=== PATIENT | male | born 1955 | race Caucasian/White ===

== ENCOUNTER 2019-10-04 16:45 | Outpatient (CLI) | payer BC ==
--- NOTE | 2019-10-04 17:45 | Ultrasound Report ---
PROCEDURE: Duplex Ext Veins Bilateral INDICATIONS: Lower extremity edema worse on the left side TECHNIQUE: Real-time imaging, as well as color and pulse Doppler interrogation, were performed of the deep veins of both legs from the inguinal ligament to the popliteal fossa. COMPARISON: None FINDINGS: The deep veins are normally compressible, and free of intraluminal thrombus. Color and pu lse Doppler demonstrate normal phasic intravascular flow. There is normal augmentation response to d istal compression maneuver. IMPRESSION: No evidence of DVT in visualized bilateral lower extremity veins. Reviewed by: Obi Schmidt MD on 10/04/2019 5:43 PM PDT Approved by: Obi Schmidt MD on 10/04/2019 5:43 PM PDT Station ID: [id number]
== END 2019-10-04 16:46 | disposition home or self-care (01) ==
LOC: DI 16:45
PROVIDERS: ATTEND Internal Medicine
DX: R60.0 Localized edema (principal); Z96.642 Presence of left artificial hip joint
CPT/HCPCS: 93970

== ENCOUNTER 2022-03-07 14:15 | Outpatient (CLI) | payer MEDICARE, OTHER | END 2022-03-07 14:16 | disposition critical access hospital (66) | LOC: EMS 14:15 | DX: R55 Syncope and collapse (principal); R56.9 Unspecified convulsions; R41.0 Disorientation, unspecified; S00.81XA Abrasion of other part of head, initial encounter; S00.31XA Abrasion of nose, initial encounter; S60.512A Abrasion of left hand, initial encounter; S60.511A Abrasion of right hand, initial encounter; W18.39XA Other fall on same level, initial encounter; Y92.89 Other specified places as the place of occurrence of the external cause | CPT/HCPCS: A0425; A0429 ==

== ENCOUNTER 2022-03-07 14:27 | Emergency (ER) | payer MEDICARE, OTHER ==
--- NOTE | 2022-03-07 14:34 | ED Physician Documentation ---
PD HPI SEIZURE - Stated complaint Stated Complaint: SYNCOPE - History obtained from History obtained from: Patient, EMS - Additional information Additional information: 66-year-old gentleman with history of aortic valve replacement, bovine, chronic GI issues and hypertension had what sounds ago first-time seizure today. He is a senior management consultant and he was on the deck at his office, his was inside and heard a thud and found him face down with tonic-clonic seizure activity lasting minutes with a prolonged postictal episode. He is currently still confused but conversant, and improving rapidly. He has never had a seizure before. He drinks alcohol nightly, but says not to excess and no recent changes in alcohol consumption. Review of Systems Ten Systems: 10 systems reviewed and negative Constitutional: reports: Reviewed and negative Ears: reports: Reviewed and negative Throat: reports: Reviewed and negative Cardiac: reports: Reviewed and negative PD PAST MEDICAL HISTORY - Past Medical History Cardiovascular: Hypertension, Valve disorder - Past Surgical History Past Surgical History: Yes Cardiovascular: Valve replacement - Present Medications Home Medications: Ambulatory Orders Medication Instructions Recorded Confirmed Aspirin/Calcium Carbonate/Mag 1 tab DAILY 10/23/14 10/23/14 [Aspirin Buffered 325 mg Tab] HYDROcod/ACETAM 5/325 [Vicodin 1 tab QPM 10/23/14 10/23/14 5/325] Metoprolol Succinate [Toprol Xl] 25 mg PO BID 10/23/14 10/23/14 predniSONE [Deltasone] 40 mg PO DAILY 5 Days tablet 10/23/14 - Allergies Allergies/Adverse Reactions: Allergies Allergy/AdvReac Type Severity Reaction Status Date / Time No Known Drug Allergies Allergy Verified 10/23/14 18:29 - Social History Does the pt smoke?: No Smoking Status: Never smoker Does the pt drink ETOH?: Yes Does the pt have substance abuse?: No - Immunizations Immunizations: TDAP >10years/unknown PD ED PE NORMAL - Vitals Vital signs reviewed: Yes - General General: No acute distress, Other (Alert and oriented x2, does not recollect events from today.) - HEENT HEENT: PERRL, EOMI, Other (He has abrasions on the forehead and on the bridge of the nose with a abrasion on the top right of the tongue without laceration. No loose teeth.) - Neck Neck: Supple, no meningeal sign, No bony TTP, No bruit - Cardiac Cardiac: RRR, No murmur - Respiratory Respiratory: No respiratory distress, Clear bilaterally - Abdomen Abdomen: Normal bowel sounds, Soft, Non tender - Back Back: No CVA TTP, No spinal TTP - Derm Derm: Normal color, Warm and dry - Extremities Extremities: Other (Abrasions on the dorsum of both hands without tenderness or limited range of motion.) - Neuro Neuro: jockey agent 2-12 intact Eye Opening: Spontaneous Motor: Obeys Commands Verbal: Confused GCS Score: 14 Results - Vitals Vitals: Vital Signs - 24 hr 03/07/22 03/07/22 14:58 17:08 Temperature 36.8 C Heart Rate 96 71 Respiratory 18 13 Rate Blood Pressure 141/85 H 151/99 H O2 Saturation 94 99 Oxygen O2 Source Room air - EKG (time done) 1436 Rate: Rate (enter#) (93) Rhythm: NSR (w pvcs), LAE Intervals: Other (IVCD mild 130msec). No: Prolonged QT Ischemia: Q waves (inferior). No: ST elevation c/w ischemia, ST depression - Labs Labs: Laboratory Tests 03/07/22 03/07/22 03/07/22 14:36 14:36 14:36 WBC 11.2 H RBC 4.97 Hgb 16.5 Hct 49.7 MCV 100.0 H MCH 33.2 H MCHC 33.2 RDW 13.5 Plt Count 264 MPV 9.4 Neut # (Auto) 6.9 H Lymph # (Auto) 2.6 Whitfield # (Auto) 1.5 H Eos # (Auto) 0.1 Baso # (Auto) 0.1 Absolute Nucleated RBC 0.00 Nucleated RBC % 0.0 Sodium 131 L Potassium 3.8 Chloride 94 L Carbon Dioxide 17 L Anion Gap 20.0 H BUN 9 Creatinine 0.8 Estimated GFR (MDRD) 97 Glucose 137 H Calcium 9.0 Magnesium 2.1 Total Bilirubin 1.4 H AST 34 ALT 40 Alkaline Phosphatase 47 Total Protein 7.6 Albumin 4.3 Globulin 3.3 Albumin/Globulin Ratio 1.3 Prolactin 94.91 PD Medical Decision Making - ED course Reviewed Lab Results: Prolactin level at 95 confirming likely seizure, not syncope. CBC with mild leukocytosis, and CMP with mild acidosis consistent with post ictal state. ED course: CT of the head and cervical spine show no trauma in the head and no other abnormality, cervical spine was reviewed and discussed with the radiologist. He does not feel that the abnormality he noted in the report is from trauma. Patient reexamined at that time, he has chronic neck pain, not any worse than normal. No midline spinal tenderness. Full range of motion of the neck. MRI of the brain was unremarkable Remainder of his CTs were unremarkable. Lab work notable for elevated prolactin consistent with true seizure. Case discussed by phone with his primary care physician, Dr. Carrillo who will aid with follow-up. Departure - Departure Disposition: Home, Self Care Clinical Impression: New onset seizure Facial abrasion Qualifiers: Encounter type: initial encounter Qualified Code(s): S00.81XA - Abrasion of other part of head, initial encounter Abrasion of right hand Qualifiers: Encounter type: initial encounter Qualified Code(s): S60.511A - Abrasion of right hand, initial encounter Abrasion of left hand Qualifiers: Encounter type: initial encounter Qualified Code(s): S60.512A - Abrasion of left hand, initial encounter Condition: Stable Record reviewed to determine appropriate education?: Yes Instructions: ED Seizure New Onset Unk Cause Comments: You are seen today for a first-time seizure. Your prolactin level is elevated consistent with seizure as opposed to a passing out episode with shaking. The prolactin level was about 95. CT of the head and neck showed only degenerative changes, MRI of the brain was normal. Your physician recommended follow-up with neurology at the [facility] location, call for an appointment, the phone number is [phone]. Call Thursday for an appointment. As discussed, [place] state law mandates no driving for 6 months seizure-free
[2022-03-07 14:39] LABS: BASOPHILS # (AUTO) 0.1 10^3/uL (0.0-0.1); BASOPHILS % (AUTO) 0.4 %; EOSINOPHILS # (AUTO) 0.1 10^3/uL (0.0-0.7); EOSINOPHILS % (AUTO) 0.8 %; HCT - HEMATOCRIT 49.7 % (42.0-52.0); HGB - HEMOGLOBIN 16.5 g/dL (14.0-18.0); LYMPHOCYTES # (AUTO) 2.6 10^3/uL (1.5-3.5); LYMPHOCYTES % (AUTO) 23.1 %; MEAN CORPUSCULAR HEMOGLOBIN 33.2 pg (27.0-31.0); MEAN CORPUSCULAR HGB CONC 33.2 g/dL (32.0-36.0); MEAN PLATELET VOLUME 9.4 fL (7.4-11.4); MONOCYTES # (AUTO) 1.5 10^3/uL (0.0-1.0); MONOCYTES % (AUTO) 13.2 %; NEUTROPHILS # (AUTO) 6.9 10^3/uL (1.5-6.6); NEUTROPHILS % (AUTO) 61.8 %; PLT - PLATELET COUNT 264 10^3/uL (130-450); RED BLOOD COUNT 4.97 10^6/uL (4.70-6.10); RED CELL DISTRIBUTION WIDTH 13.5 % (12.0-15.0); WHITE BLOOD COUNT 11.2 x10^3/uL (4.8-10.8)
[2022-03-07 14:59] LABS: ALBUMIN 4.3 g/dL (3.2-5.5); ALBUMIN/GLOBULIN RATIO 1.3 (1.0-2.2); BILIRUBIN,TOTAL 1.4 mg/dL (0.2-1.0); CREATININE 0.8 mg/dL (0.6-1.2); MAGNESIUM 2.1 mg/dL (1.7-2.8); POTASSIUM 3.8 mmol/L (3.5-5.0); TOTAL PROTEIN 7.6 g/dL (6.7-8.2)
--- NOTE | 2022-03-07 15:20 | CT Report ---
PROCEDURE: HEAD WO INDICATIONS: head inj/sz TECHNIQUE: Noncontrast 4.5 mm thick angled axial sections acquired from the foramen magnum to the vertex. For r adiation dose reduction, the following was used: automated exposure control, adjustment of mA and/or kV according to patient size. COMPARISON: None. FINDINGS: Image quality: Excellent. CSF spaces: Basal cisterns are patent. No extra-axial fluid collections. Ventricles are normal in size and shape. Brain: No midline shift. No intracranial masses or hemorrhage. Dominique-white matter interface is norm al. Skull and face: Calvarium and visualized facial bones are intact, without suspicious lesions. Sinuses: Visualized sinuses and mastoids are clear. Trace because of thickening in the left maxillar y sinus. IMPRESSION: No acute intracranial abnormality. Reviewed by: Rod Massey MD on 03/07/2022 3:18 PM PST Approved by: oRd Massey MD on 03/07/2022 3:18 PM RUST Station ID: [id number]
--- NOTE | 2022-03-07 15:28 | CT Report ---
PROCEDURE: CERVICAL SPINE WO INDICATIONS: head inj/sz TECHNIQUE: Noncontrast 3 mm thick sections acquired from the skull base to the T4 level. Sagittal and coronal r eformats were then constructed. For radiation dose reduction, the following was used: automated exp osure control, adjustment of mA and/or kV according to patient size. COMPARISON: None. FINDINGS: Image quality: Excellent. Bones: Lucency at C4 anterior osteophyte, (8/50). There is no adjacent paraspinal hematoma. There are prominent cervical spine osteophytes. There is loss of intervertebral disc space height. There is un covertebral joint hypertrophy. No dislocation. Upper cervical spine facet joint ankylosis. Visualized superior ribs are intact. Soft tissues: Prevertebral soft tissues are normal in thickness. No paravertebral hematomas. No ap ical pneumothoraces. IMPRESSION: Lucency at the C4 anterior osteophyte. No paraspinal hematoma. This could be the sequelae of remote i njury. Low suspicion for acute traumatic injury. Recommend clinical correlation. If clinically indicated MRI could be performed for further evaluation. Results were communicated to Dr. Nico Walter at 03/07/2022 3:25 PM PST. Reviewed by: Rod Massey MD on 03/07/2022 3:27 PM PST Approved by: Rod Massey MD on 03/07/2022 3:27 PM PST Station ID: [id number]
[2022-03-07] MEDS ORDERED: BACITRACIN ZINC OINT 1 PACKET TOP STA (15:39)
[2022-03-07] MEDS ORDERED: GADOBUTROL 15 MMOL/15 ML VIAL ONE (15:46)
[2022-03-07] MEDS ORDERED: LORazepam 2 MG/ML VIAL IVP STA (15:49)
--- NOTE | 2022-03-07 15:52 | CT Report ---
PROCEDURE: MAXILLOFACIAL WO INDICATIONS: head inj/sz TECHNIQUE: Noncontrast 1.5 mm thick axial images acquired from the mandible through the frontal sinuses, with co cira and sagittal reformatting. For radiation dose reduction, the following was used: automated ex posure control, adjustment of mA and/or kV according to patient size. COMPARISON: CT cervical spine from the same date. FINDINGS: Image quality: Excellent. Bones and teeth: Orbital sharpe are intact. Sinus sharpe show no fracture or deformity. Nasal bones and septum are intact. Visualized portions of the mandible demonstrate no fractures or subluxation. Zygomatic arches are intact. Pterygoid plates are intact. Visualized portions of the skull base an d auditory canals are intact. As noted on the cervical spine CT, there is extensive cervical spondylitic change. There is a lucency involving the anterior C4 osteophyte which likely represents a fracture of the osteophyte, most like ly remote. Sinuses: Paranasal sinuses are aerated, without fluid levels, mucosal thickening, or mucoceles. Mas toid air cells are aerated. Soft tissues: No edema, masses, or fluid collections. No enlarged lymph nodes. No soft tissue lace rations or debris. Vascular: Visualized vascular structures appear normal in the absence of contrast. Bony vascular fo ramina and canals are intact. IMPRESSION: 1. No evidence of facial bone fracture or mandibular fracture. 2. Extensive cervical spondylitic change. 3. There is likely a fracture of an anterior osteophyte off of C4. This most likely is a chronic find ing. However, if there is suspicion of acute injury, recommend cervical spine MRI. Reviewed by: Nayan Bunch MD on 03/07/2022 3:51 PM PST Approved by: Nayan Bunch MD on 03/07/2022 3:51 PM PST Station ID: [id number]
[2022-03-07] MEDS ORDERED: ONDANSETRON 4 MG/2 ML VIAL IVP STA (17:17)
[2022-03-07] MEDS ORDERED: GADOBUTROL 15 MMOL/15 ML VIAL IVP ONE (17:29)
[2022-03-07 17:50] VITALS: BP 151/99
--- NOTE | 2022-03-07 17:56 | MRI Report ---
PROCEDURE: BRAIN W/WO INDICATIONS: new onset sz CONTRAST: 12.1 TECHNIQUE: Noncontrast axial T1 spin echo, axial T2 fast spin echo, sagittal and axial FLAIR, coronal T2 fast sp in echo, axial gradient echo, axial diffusion and ADC through the brain. After the administration of contrast, axial and coronal T1 spin echo with fat saturation through the brain. COMPARISON: CT of head dated 03/07/2022. FINDINGS: Image quality: Excellent. CSF spaces: Basal cisterns are patent. No extra-axial fluid collections. Ventricles are normal in size and shape. Brain: No midline shift. No intracranial bleeds or masses. No abnormal intracranial enhancement. There is cerebral volume loss for age. There is periventricular white matter chronic small vessel is chemic change. The brainstem appears normal. Diffusion-weighted images demonstrate no acute ischemi c insults. No chronic ischemic insults. Normal intravascular flow voids are present. Skull and face: Calvarial marrow is normal in signal. Orbits appear normal. Sinuses: Sinuses and mastoids appear clear. IMPRESSION: 1. No evidence of acute infarction. No acute intracranial bleed, midline shift or mass effect. 2. No area of abnormal intracranial enhancement. 3. Age-appropriate mild volume loss and mild white matter chronic small vessel ischemic changes. Reviewed by: Obi Schmidt MD on 03/07/2022 5:55 PM PST Approved by: Obi Schmidt MD on 03/07/2022 5:55 PM PST Station ID: [id number]
== END 2022-03-07 19:07 | disposition home or self-care (01) ==
LOC: EDUNIT# → ED 14:27
DX: S00.81XA Abrasion of other part of head, initial encounter (principal); S60.511A Abrasion of right hand, initial encounter; S60.512A Abrasion of left hand, initial encounter; W19.XXXA Unspecified fall, initial encounter; G40.89 Other seizures
CPT/HCPCS: 36415; 70450; 70486; 70553; 72125; 80053; 83735; 84146; 85025; 93005; 96374; 96375; 99283; 99284; A9270; A9585; J2060

== ENCOUNTER 2022-03-11 19:56 | Outpatient (CLI) | payer MEDICARE, OTHER | END 2022-03-11 19:57 | disposition critical access hospital (66) | LOC: EMS 19:56 | DX: R56.9 Unspecified convulsions (principal); R45.1 Restlessness and agitation; R41.0 Disorientation, unspecified | CPT/HCPCS: A0425; A0427 ==

== ENCOUNTER 2022-03-11 20:15 | Emergency (ER) | payer MEDICARE, OTHER ==
--- NOTE | 2022-03-11 20:38 | ED Physician Documentation ---
"History of Present Illness - Stated complaint Stated Complaint: SEIZURE - Chief complaint Chief Complaint: Neuro - History obtained from History obtained from: Patient, Family () - Additonal information Additional information: 66yM with pmh heart disease s/p open heart surgery (aortic valvular replacement), htn, p/w recurrent seizure today. patient was seen four days ago for first time GTC seizure, discharged home to f/u with pcp and neurology. he was walking and suddenly fell flat on face and had repeat seizure again today witnessed by family. per ems patient was postictal on arrival but is now back to baseline. AOX4. Review of Systems Ten Systems: 10 systems reviewed and negative Constitutional: denies: Fever, Chills Cardiac: denies: Chest pain / pressure Respiratory: denies: Dyspnea GI: reports: Nausea. denies: Vomiting Skin: reports: Abrasion (s) Musculoskeletal: denies: Neck pain, Back pain, Extremity pain Neurologic: reports: Seizure PD PAST MEDICAL HISTORY - Past Medical History Cardiovascular: Hypertension, Valve disorder - Past Surgical History Past Surgical History: Yes Cardiovascular: Valve replacement - Present Medications Home Medications: Ambulatory Orders Medication Instructions Recorded Confirmed Aspirin/Calcium Carbonate/Mag 1 tab DAILY 10/23/14 10/23/14 [Aspirin Buffered 325 mg Tab] HYDROcod/ACETAM 5/325 [Vicodin 1 tab QPM 10/23/14 10/23/14 5/325] Metoprolol Succinate [Toprol Xl] 25 mg PO BID 10/23/14 10/23/14 predniSONE [Deltasone] 40 mg PO DAILY 5 Days tablet 10/23/14 Levetiracetam [Keppra] 750 mg PO BID #60 tablet 03/11/22 - Allergies Allergies/Adverse Reactions: Allergies Allergy/AdvReac Type Severity Reaction Status Date / Time No Known Drug Allergies Allergy Verified 03/11/22 20:22 - Social History Does the pt smoke?: No Smoking Status: Never smoker Does the pt drink ETOH?: Yes Does the pt have substance abuse?: No - Immunizations Immunizations: TDAP >10years/unknown PD ED PE NORMAL - Vitals Vital signs reviewed: Yes - General General: Alert and oriented X 3, No acute distress, Well developed/nourished - HEENT HEENT: Atraumatic, PERRL, EOMI, Moist mucous membranes, Pharynx benign - Neck Neck: Supple, no meningeal sign - Cardiac Cardiac: RRR - Respiratory Respiratory: No respiratory distress, Clear bilaterally - Abdomen Abdomen: Non tender, Non distended - Back Back: No spinal TTP - Derm Derm: Normal color, Warm and dry, Other (abrasions to nose and cheeks) - Extremities Extremities: No deformity - Neuro Neuro: No motor deficit, No sensory deficit - Psych Psych: Normal mood, Normal affect Results - Vitals Vitals: Vital Signs - 24 hr 03/11/22 03/11/22 20:22 20:26 Temperature 37.0 C 37.0 C Heart Rate 84 84 Respiratory 16 16 Rate Blood Pressure 157/100 H 157/100 H O2 Saturation 98 98 Oxygen O2 Source Room air PD Medical Decision Making - ED course ED course: 66yM presents with recurrent seizure. he experienced first seizure 4 days ago and had another GTC seizure today. has been unable to get in to see a neurologist as of yet. d/w Dr. Elias, neurologist at [facility]. Plan to start keppra 750 bid and have him f/u with pcp and neurology for outpatient EEG. return precautions given. Departure - Departure Disposition: 01 Home, Self Care Clinical Impression: Seizure Condition: Good Instructions: ED Seizure Recurrent Prescriptions: Levetiracetam [Keppra] 750 mg PO BID #60 tablet Comments: You are seen in the emergency department for repeat seizure. I am starting you on Keppra, an antiseizure medication. You should follow-up with your primary care doctor soon as possible and get in to see a neurologist as well. Return to the emergency department if you have any new or worsening symptoms or concerns. Do not drive for 6 months. Keppra was sent electronically to [facility] in [place]. Dr. Jorge Alberto Elias MD | [place], [place] | Neurologist | Dr. Jorge Alberto Elias is a neurologist in [place], [place] and is affiliated with multiple hospitals in the area. Location: [facility], [address] [place] [address] "
[2022-03-11] MEDS: BACITRACIN ZINC OINT 1 PACKET TOP STA (21:00)
[2022-03-11] MEDS: ONDANSETRON ODT 4 MG TABLET TL STA (21:00)
[2022-03-11] MEDS: levETIRAcetam 250 MG TABLET PO STA ×2 (21:15→21:16)
[2022-03-11] MEDS: LORazepam 0.5 MG TABLET PO STA (21:25)
[2022-03-11 22:49] VITALS: BP 160/98
== END 2022-03-11 23:02 | disposition home or self-care (01) ==
LOC: EDUNIT# → ED 20:15
DX: R56.9 Unspecified convulsions (principal); S00.31XA Abrasion of nose, initial encounter; S00.81XA Abrasion of other part of head, initial encounter; W18.39XA Other fall on same level, initial encounter; Y93.01 Activity, walking, marching and hiking
CPT/HCPCS: 99282; 99283; A9270; Q0162